=== PATIENT | male | born 1950 | race Caucasian/White ===

== ENCOUNTER 2017-02-15 15:16 | Emergency (ER) | payer MEDICARE ==
[~2017-02-15] VITALS: Ht 182.9 cm; Wt 76.2 kg
--- NOTE | ~2017-02-15 | CR142 ---
[facility]. [facility] A Service of [facility] & [facility] RADIOLOGY TEXT RESULTS PATIENT: TERRELL COKER LOCATION: CFTX : 50 UNIT #: [id number] AGE: [address]: Venice Alvarado APRN SEX: M ORDER DR: [id number] [facility] [address] [place], [place] [address] [id number] E MR#: [id number] Acc #: [id number] NAME: TERRELL COKER. : 1950 SEX: M STUDY DATE/TIME: 02/15/2017 16:16 UNIT: [facility] ROOM: STUDY DESCRIPTION: CR Hand Min 3 Views Rt Attending Physician: Venice Alvarado A.P.R.N. Ordering Physician: Ed Doctor [id number] [facility] Primary Care Physician: Silas Amezquita M.D. MEDICAL IMAGING REPORT This report is preliminary unless electronic signature is present EXAM Three views right hand. DATE: 02/15/2017 HISTORY Right hand pain after falling on concrete on 02/15/2017. Bladder cancer. FINDINGS No acute displaced fracture is identified. Advanced osteoarthritic type changes are demonstrated within the right hand, greatest in the first metacarpal phalangeal joint, as well as the proximal and distal interphalangeal joints. No osteolytic or osteoblastic abnormalities are identified. No retained radiopaque foreign body is seen within the soft tissues. IMPRESSION 1. 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 No acute findings. Dictated by... Elvi Martin M.D. THIS IS AN ELECTRONICALLY VERIFIED REPORT Elvi Martin M.D. at 02/17/2017 9:51 AM [facility]/aster TD: 02/16/2017 12:45 JOB #: [id number] MEDICAL IMAGING REPORT Page 1 of 1 COPY
[~2017-02-15 15:16] MED LIST: AMLODIPINE BESYL5 MG PO; ASPIRINEC PO; ATENOLOL PO; ENDOCET 5-3251 EACH PO; FISH OIL PO; LOSARTAN POTASS50 MG PO; MULTIPLE VITAMI1 T11 PO; PROZAC PO; VITAMIN D2000 UNI1 PO; VITAMIN E400 UNI1 PO; ZETIA PO; ZOCOR PO
== END 2017-02-15 17:30 | disposition home or self-care (01) ==
LOC: CFTX 15:16 → CED 15:16 → CFTX 16:09
DX: S61.411A Laceration without foreign body of right hand, initial encounter (principal); Z23 Encounter for immunization; Z79.899 Other long term (current) drug therapy; W18.30XA Fall on same level, unspecified, initial encounter; Y93.73 Activity, racquet and hand sports; Y92.009 Unspecified place in unspecified non-institutional (private) residence as the place of occurrence of the external cause
CPT/HCPCS: 12002; 73130; 90471; 90715; 99283